=== PATIENT | male | born 1965 ===

== ENCOUNTER 2016-07-06 17:31 | Emergency (ER) | payer OTHER ==
[~2016-07-06] VITALS: Ht 175.3 cm; Wt 103.5 kg
[2016-07-06 18:00] VITALS: Ht 175.3 cm; Wt 103.5 kg
[2016-07-06] MEDS ORDERED: HYDR-902 PO (21:56)
[2016-07-06] MEDS ORDERED: LORA-441 PO (21:57)
[2016-07-06 21:58] LABS: BASOPHIL # 0.1 10^3/ul (0.0-0.1); BASOPHILS % 0.7 % (0.0-2.0); EOSINOPHILS # 0.1 10^3/ul (0.0-0.5); EOSINOPHILS % 1.1 % (0.0-7.0); HEMATOCRIT 49.6 % (42.0-52.0); HEMOGLOBIN 17.1 g/dl (14.0-18.0); LYMPHOCYTES # 2.3 10^3/ul (0.8-2.9); LYMPHOCYTES % 23.1 % (15.0-51.0); MEAN CORPUSCULAR HEMOGLOBIN 32.1 pg (29.0-33.0); MEAN CORPUSCULAR HGB CONC 34.4 g/dl (32.0-37.0); MEAN CORPUSCULAR VOLUME 93.4 fl (82.0-101.0); MEAN PLATELET VOLUME 8.5 fl (7.4-10.4); MONOCYTE # 0.8 10^3/ul (0.3-0.9); MONOCYTES % 8.5 % (0.0-11.0); NEUTROPHIL # 6.6 10^3/ul (1.6-7.5); NEUTROPHILS % 66.6 % (39.0-77.0); PLATELET COUNT 312 10^3/UL (140-440); RED BLOOD COUNT 5.31 10^6/ul (4.70-6.10); UNCORRECTED WBC 9.9 10^3/ul (4.8-10.8); WHITE BLOOD COUNT 9.9 10^3/ul (4.8-10.8)
[2016-07-06 21:59] LABS: CONDITION 1
[2016-07-06] MEDS ORDERED: MECLIZINE 12.5 MG TAB PO ONE (22:00)
[2016-07-06 22:04] LABS: CHLORIDE 104 mmol/L (97-110); POTASSIUM 4.1 mmol/L (3.5-5.1); SODIUM 141 mmol/L (135-144)
[2016-07-06 22:05] LABS: INR 0.95; PROTIME 12.7 Sec (12.2-14.2)
[2016-07-06 22:06] LABS: CREATININE 1.06 mg/dl (0.61-1.24); PARTIAL THROMBOPLASTIN TIME 24.2 Sec (25.0-35.0)
[2016-07-06 22:07] LABS: ANION GAP 20 (8-16); BLOOD UREA NITROGEN 15 mg/dl (7-20); CALCIUM 10.1 mg/dl (8.4-10.2); CARBON DIOXIDE 21 mmol/L (21-31); GLUCOSE 106 mg/dl (70-220)
[2016-07-06 22:19] LABS: TROPONIN-I < 0.012 ng/ml (0.00-0.12)
--- NOTE | 2016-07-06 22:40 | ERD ---
ER Documentation Chief Complaint Date/Time DATE: 07/06/16 TIME: 22:39 Chief Complaint DIZZINESS,LOWER BACK PAIN X 1 WEEK HPI This is a 50-year-old male who presents to the emergency room for evaluation of dizziness, and anxiety. The patient does state that he describes his dizziness as a lightheaded sensation. The patient states he has a history of anxiety, and this feels similar to previous anxiety, and the patient is denying any chest pain or palpitations. The patient came to the ER today for evaluation. ROS All systems reviewed and are negative except as per history of present illness. Medications Home Meds Reported Medications Lorazepam* (Ativan*) Unknown Strength Tablet, MG PO BID Y for ANXIETY, #30 TAB 07/06/16 Hydrocodone/Acetaminophen ([place] 10-325 Tablet) 1 Each Tablet, 1 EACH PO QHS, TAB 07/06/16 Allergies Allergies: Coded Allergies: No Known Allergy (Unverified , 07/06/16) PMhx/Soc Medical and Surgical Hx: pt denies Surgical Hx Anesthesia Reaction: No Hx Neurological Disorder: No Hx Respiratory Disorders: No Hx Substance Use: No Hx Tobacco Use: No Smoking Status: Never smoker Physical Exam Vitals Vital Signs Date Time Temp Pulse Resp B/P Pulse Ox O2 Delivery O2 Flow Rate FiO2 07/06/16 21:40 Nasal Cannula 2 07/06/16 21:28 97.9 76 11 139/108 97 Room Air 07/06/16 18:00 98.7 78 18 156/94 98 Physical Exam INITIAL VITAL SIGNS: Reviewed by me GENERAL: The patient is well developed and appropriate for usual state of health in no apparent distress HEENT: Pupils equal, round, and reactive to light. EOMI. There is no scleral icterus. NECK: C-spine is soft and supple, there is no meningismus. There is no cervical lymphadenopathy. LUNGS: Clear to auscultation bilaterally. There are no rales, wheezes or rhonchi. HEART: Regular rate and rhythm, no murmurs, clicks, rubs or gallops. ABDOMEN: Soft, non-tender, non-distended. There are bowel sounds in all four quadrants. No rebound or guarding. EXTREMITIES: There is no peripheral cyanosis or edema. No focal swelling or erythema. NEUROLOGICAL: The patient moves all four extremities with 5/5 strength. Cranial nerves II - XII are intact. Normal gait. Alert and oriented SKIN: There is no apparent rash or petechiae. HEME/LYMPHATIC: There is no evidence of excessive bruising or lymphedema. PSYCHIATRIC: The patient appears mildly anxious Result Diagram: 07/06/16213907/06/162139 Results 24 hrs Laboratory Tests Test 07/06/16 21:40 Activated Partial Thromboplast Time 24.2Sec Anion Gap 20 Basophils # 0.110^3/ul Basophils % 0.7% Blood Urea Nitrogen 15mg/dl Calcium Level 10.1mg/dl Carbon Dioxide Level 21mmol/L Chloride Level 104mmol/L Creatinine 1.06mg/dl Eosinophils # 0.110^3/ul Eosinophils % 1.1% Glucose Level 106mg/dl Hematocrit 49.6% Hemoglobin 17.1g/dl INR International Normalized Ratio 0.95 Lymphocytes # 2.310^3/ul Lymphocytes % 23.1% Mean Corpuscular Hemoglobin 32.1pg Mean Corpuscular Hemoglobin Concent 34.4g/dl Mean Corpuscular Volume 93.4fl Mean Platelet Volume 8.5fl Monocytes # 0.810^3/ul Monocytes % 8.5% Neutrophils # 6.610^3/ul Neutrophils % 66.6% Nucleated Red Blood Cells # 0.010^3/ul Nucleated Red Blood Cells % 0.0/100WBC Platelet Count 37647^3/UL Potassium Level 4.1mmol/L Prothrombin Time 12.7Sec Prothrombin Time Ratio 1.0 Red Blood Count 5.3110^6/ul Red Cell Distribution Width 13.0% Sodium Level 141mmol/L Troponin I < 0.012ng/ml White Blood Count 9.910^3/ul Current Medications Medications (Trade) Dose Ordered Sig/Shari Route PRN Reason Start Time Stop Time Status Last Admin Dose Admin Meclizine HCl (Antivert) 25 mg ONCE ONCE PO 07/06/16 22:00 07/06/16 22:01 DC 07/06/16 21:44 Hydroxyzine Pamoate (Vistaril) 25 mg ONCE ONCE PO 07/06/16 23:00 07/06/16 23:01 Procedures/MDM EKG: Rate/Rhythm: [Normal Sinus Rhythm] QRS, ST, T-waves: [No changes consistent w/ acute ischemia] Impression: [No evidence of ischemia or arrhythmia] Chest X-ray 1V Interpreted by me: Soft Tissue: No acute abnormalities Bones: No acute abnormalities Mediastinum/Cardiac Silhouette/Lungs: [No acute abnormalities] This 50-year-old male presents to the ER for evaluation of dizziness, and anxiety. The patient was anxious on my examination. I did obtain a cardiac panel including a troponin which was normal. EKG which is nonischemic. Chest x -ray which is normal. The patient was given meclizine and Vistaril here in the emergency room for dizziness and anxiety. A pulmonary evaluation the patient does state he is feeling better at this time. He will be discharged home with a prescription for Vistaril to take over the course of the next 3 days until he can be seen by his primary care physician Departure Diagnosis: Primary Impression: Dizziness Additional Impression: Anxiety reaction Condition: Fair DANYELL ROA DO Jul 06, 2016 22:40
[2016-07-06] MEDS ORDERED: HYDR25CA PO (22:45)
[2016-07-06] MEDS ORDERED: hydrOXYzine PAMOATE 25 MG CAP PO ONE (23:00)
[2016-07-06] MEDS ORDERED: TRAM50TA2 PO (23:07)
[2016-07-06 23:11] VITALS: BP 143/113; PULSE 80; RESP 11; TEMP 98
--- NOTE | 2016-07-06 23:15 | RADRPT ---
PROCEDURE: XR Chest. CLINICAL INDICATION: Chest pain. TECHNIQUE: AP Portable chest. COMPARISON: None available FINDINGS: Low lung volumes are present. The soft tissues and bones are normal. No focal infiltrates, masses, or effusions are noted. The m ediastinum and heart are normal. No pneumothorax is present. IMPRESSION: 1. No radiographic evidence for acute cardiopulmonary disease RPTAT: HDC .Mary Mason MD, MD Date Time Electronically viewed and signed by .Mary Mason MD, on 07/06/2016 23:14 .C/
== END 2016-07-06 23:16 | disposition home or self-care (01) ==
LOC: E/R 17:31
DX: R42 Dizziness and giddiness (principal); F41.1 Generalized anxiety disorder; R07.9 Chest pain, unspecified; M54.30 Sciatica, unspecified side
CPT/HCPCS: 36415; 71010; 80048; 84484; 85025; 85610; 85730; 93005; Z7502; Z7610

== ENCOUNTER 2016-07-18 00:07 | Emergency (ER) | payer OTHER ==
[~2016-07-18] VITALS: Ht 182.9 cm; Wt 110.9 kg
[~2016-07-18 00:07] MED LIST: HYDR-902 PO; HYDR25CA PO; LORA-441 PO; TRAM50TA2 PO
[2016-07-18 00:14] VITALS: Ht 182.9 cm; Wt 110.9 kg
[2016-07-18] MEDS ORDERED: MAGIC MOUTHWASH (01:15)
[2016-07-18] MEDS ORDERED: FLUT9.9S NASAL (01:46)
[2016-07-18] MEDS ORDERED: GUAI120011 PO (01:46)
[2016-07-18] MEDS ORDERED: AZIT250T94 PO (01:46)
--- NOTE | 2016-07-18 02:00 | ERD ---
ER Documentation Chief Complaint Date/Time DATE: 07/18/16 TIME: 01:51 Chief Complaint sore spot on tongue HPI This is a 50-year-old male who presents to the emergency department today with complaints of pain and a sore on the side of his tongue for 6 weeks, cough and runny nose and congestion for the past several days. States he is unsure if he has had a fever. Denies any nausea or vomiting ROS All systems reviewed and are negative except as per history of present illness. Medications Home Meds Active Scripts Guaifenesin (Mucinex) 1,200 Mg Tab.er.12h, 1200 MG PO BID for 5 Days, TAB Prov:NICHELLE FLORIAN PA-C 07/18/16 Fluticasone Propionate (Flonase Allergy Relief) 9.9 Ml [place].susp, 1 SPRAY NASAL BID, #1 BOTTLE TO EACH NOSTRIL Prov:NICHELLE FLORIAN PA-C 07/18/16 Azithromycin* (Zithromax*) 250 Mg Tablet, 250 MG PO .ZPACK DIRECTED, #6 TAB TAKE 500 MG (2 TABS) THE FIRST DAY THEN 250 MG (1 TAB) DAYS 2-5 Prov:NICHELLE FLORIAN PA-C 07/18/16 [Magic Mouthwash] No Conflict Check Rx: 1 Part viscous lidocaine 2% 1 Part Maalox (do not substitute Kaopectate) 1 Part diphenhydramine 12.5 mg per 5 ml elixir Quantity: 120 ml Sig: Swish, gargle, and spit one to two teaspoonfuls every six hours as needed. May be swallowed if esophageal involvement. Shake well before using. Prov:STEFANIE LINDA NP 07/18/16 Tramadol HCl (Tramadol HCl) 50 Mg Tablet, 50 MG PO Q6, #10 TAB Prov:DANYELL ROA DO 07/06/16 Hydroxyzine Pamoate* (Vistaril*) 25 Mg Capsule, 25 MG PO Q8 for 3 Days, #10 CAP Prov:DANYELL ROA DO 07/06/16 Reported Medications Lorazepam* (Ativan*) Unknown Strength Tablet, MG PO BID Y for ANXIETY, #30 TAB 07/06/16 Hydrocodone/Acetaminophen ([place] 10-325 Tablet) 1 Each Tablet, 1 EACH PO QHS, TAB 07/06/16 Allergies Allergies: Coded Allergies: No Known Allergy (Unverified , 07/06/16) PMhx/Soc Medical and Surgical Hx: pt denies Surgical Hx History of Surgery: No Anesthesia Reaction: No Hx Neurological Disorder: No Hx Respiratory Disorders: No Hx Cardiac Disorders: Yes (HIGH BLOOD PRESSURE) Hx Psychiatric Problems: Yes (ANXIETY) Hx Miscellaneous Medical Probl: Yes (PANIC ATTACKS, SCIATICA) Hx Alcohol Use: Yes Hx Substance Use: No Hx Tobacco Use: No Smoking Status: Former smoker Physical Exam Vitals Vital Signs Date Time Temp Pulse Resp B/P Pulse Ox O2 Delivery O2 Flow Rate FiO2 07/18/16 00:14 98.7 90 18 132/74 96 Physical Exam Const: No acute distress Head: Atraumatic Eyes: Normal Conjunctiva ENT: Ears TMs normal. Nose no drainage. Throat no erythema no exudate. Very small evidence of sore on left side of tongue Neck: Full range of motion..~ No meningismus. Resp: Coarse breath sounds bilaterally in all lung das. No wheezing Cardio: Regular rate and rhythm, no murmurs Abd: Soft, non tender, non distended. Normal bowel sounds Skin: No petechiae or rashes Neur: Awake and alert Psych: Normal Mood and Affect Procedures/MDM This a 50-year-old male who presented to the emergency department today with multiple complaints. Patient is homeless and does not have good follow-up with the exception of his pain management doctor. I do not feel the patient requires a chest x-ray at this time however I will treat the patient with azithromycin for possible bronchitis versus pneumonia given his coarse breath sounds on physical exam. Patient's oxygen saturation is 96% he has not tachycardic. I do not feel the patient requires a breathing treatment. Low suspicion for PE, abscess, pleural effusion, pneumothorax. I have low suspicion for strep pharyngitis, peritonsillar abscess, retropharyngeal abscess, otitis media, sinusitis, abscess, meningitis, sepsis, or other acute infectious bacterial process. Patient has a small sore in the left side of his tongue. This does not appear to be a cancerous lesion at this time however explained to him that he should get follow-up for it. May also be an irritated taste bud versus a canker sore. We will give the patient a prescription for Magic mouthwash should he need it. At this time the patient is stable for discharge and outpatient management. They should follow up with their PCP in the next 1-2. They may return to the emergency department sooner if symptoms persist or worsen. Patient understood and agreed with the plan. Departure Diagnosis: Primary Impression: Multiple complaints Condition: Fair Patient Instructions: What Is Bronchitis?, When Your Child Has Mouth Sores Referrals: [facility] YOU HAVE RECEIVED A MEDICAL SCREENING EXAM AND THE RESULTS INDICATE THAT YOU DO NOT HAVE A CONDITION THAT REQUIRES URGENT TREATMENT IN THE EMERGENCY DEPARTMENT. FURTHER EVALUATION AND TREATMENT OF YOUR CONDITION CAN WAIT UNTIL YOU ARE SEEN IN YOUR DOCTORS OFFICE WITHIN THE NEXT 1-2 DAYS. IT IS YOUR RESPONSIBILITY TO MAKE AN APPOINTMENT FOR FOLOW-UP CARE. IF YOU HAVE A PRIMARY DOCTOR --you should call your primary doctor and schedule an appointment IF YOU DO NOT HAVE A PRIMARY DOCTOR YOU CAN CALL OUR PHYSICIAN REFERRAL HOTLINE AT IF YOU CAN NOT AFFORD TO SEE A PHYSICIAN YOU CAN CHOSE FROM THE FOLLOWING [facility] [address] [facility] [facility] [address] [facility] [facility] [address] [facility] [facility] [address] [facility]. [facility] [address] [facility] [facility]. [address] Additional Instructions: Call your primary care doctor TOMORROW for an appointment during the next 1-2 days.See the doctor sooner or return here if your condition worsens before your appointment time. Take antibiotics as prescribed Use Magic mouthwash for mouth pain Take Mucinex for cough Use Flonase for nasal congestion NICHELLE FLORIAN PA-C Jul 18, 2016 02:00
[2016-07-18 02:03] VITALS: BP 122/77; PULSE 80; RESP 18; TEMP 98.6
== END 2016-07-18 02:03 | disposition home or self-care (01) ==
LOC: FTE 00:07
DX: K14.8 Other diseases of tongue (principal); R05 Cough; R09.81 Nasal congestion; Z87.891 Personal history of nicotine dependence
CPT/HCPCS: 99283

== ENCOUNTER 2016-10-17 19:23 | Emergency (ER) | payer SELFPAY ==
[~2016-10-17] VITALS: Ht 175.3 cm; Wt 107.5 kg
[~2016-10-17 19:23] MED LIST changes: +AZIT250T94 PO; +FLUT9.9S NASAL; +GUAI120011 PO; +MAGIC MOUTHWASH
[2016-10-17 19:28] VITALS: Ht 175.3 cm; Wt 107.5 kg
== END 2016-10-18 00:25 | disposition left against medical advice (07) ==
LOC: E/R 19:23
DX: Z53.21 Procedure and treatment not carried out due to patient leaving prior to being seen by health care provider (principal)

== ENCOUNTER 2017-03-02 13:02 | Emergency (ER) | payer OTHER ==
[~2017-03-02] VITALS: Ht 182.9 cm; Wt 108.5 kg
[2017-03-02 13:04] VITALS: Ht 182.9 cm; Wt 108.5 kg
[2017-03-02] MEDS ORDERED: OLANZAPINE (ODT) 5 MG TAB PO STA (13:17)
--- NOTE | 2017-03-02 13:45 | PSY ---
Date/Time of Note Date/Time of Note DATE: 03/02/17 TIME: 13:40 Psychiatric Subjective Eval Consent Pt consented to telemedicine: Yes Subjective Evaluation Patient location: emergency Chief Complaint: SI x 3 months has plan History of present illness " I am home;less, I lost job, I do cocaine and lastly Amhetamine, I want to kill myslf, I will cut my wrists" Also reports seeing shadows out of corners of his eyes. 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 Sleeps poorly, poor appetite, low energy level. Past psychiatric history he has seen [facility] before no inpatient Tx. Hospitalization: no Medical history Problems Medical Problems: (1) Anxiety reaction Status: Acute (2) Dizziness Status: Acute (3) Multiple complaints Status: Acute (4) Patient left without being seen Status: Acute Allergies: Coded Allergies: No Known Allergy (Unverified , 07/06/16) Substance Abuse Substance abuse history: Yes Social History Marital status: single Psychiatric Objective Eval Review of Systems: Review of Systems: Not Applicable Physical Examination: Physical Examination: Not Applicable Mental Status Examination: Appearance: Disheveled Eye Contact: Fair Psychomotor Activity: Slow Behavior: Cooperative Speech: Clear AFFECT: Depressed Mood: Depressed Though Process: Linear Thought Content: Hallucinations Suicidal: Yes Homicidal: No On 72 hour hold: Yes Orientation: x4 Cognition: Alert Insight: Impared Judgement: Impared Assessment and Plan Assessment/Diagnosis [place] I: major depressive disorder recurrent with psychosis polysubstance abuse [place] II: deferred [place] III: HTN [place] IV: Moderate [place] V: GAF 20 Recommendation/Plan Medication Management zoloft 50mg a day Trazodone 50mg HS PRN to sleep. Hydroxyzine 25mg TID PRN for severe anxiety Follow-up/Disposition 5150 involuntary admission ot psychiatry inpatient tx for DTS. 5150 Recommendation: Place Hold DEVIN TREVIÑO MD Mar 02, 2017 13:45
[2017-03-02 13:52] LABS: ADD UMIC YES; UR ASCORBIC ACID NEGATIVE (NEGATIVE); UR BILIRUBIN (Dip) NEGATIVE (NEGATIVE); UR BLOOD (Dip) 2+ mg/dL (NEGATIVE); UR CLARITY CLEAR (CLEAR); UR COLOR STRAW (YELLOW); UR GLUCOSE (Dip) NEGATIVE (NEGATIVE); UR KETONES (Dip) NEGATIVE (NEGATIVE); UR LEUKOCYTE ESTERASE (Dip) NEGATIVE Leu/ul (NEGATIVE); UR NITRITE (Dip) NEGATIVE (NEGATIVE); UR RBC 0 /HPF (0-5); UR SPECIFIC GRAVITY (Dip) 1.002 (1.003-1.030); UR TOTAL PROTEIN (Dip) NEGATIVE (NEGATIVE); UR UROBILINOGEN (Dip) NEGATIVE (NEGATIVE)
[2017-03-02 14:04] LABS: BASOPHIL # 0.1 10^3/ul (0.0-0.1); BASOPHILS % 0.8 % (0.0-2.0); EOSINOPHILS # 0.2 10^3/ul (0.0-0.5); EOSINOPHILS % 2.5 % (0.0-7.0); HEMATOCRIT 43.8 % (42.0-52.0); HEMOGLOBIN 15.6 g/dl (14.0-18.0); LYMPHOCYTES # 1.6 10^3/ul (0.8-2.9); LYMPHOCYTES % 25.5 % (15.0-51.0); MEAN CORPUSCULAR HEMOGLOBIN 31.9 pg (29.0-33.0); MEAN CORPUSCULAR HGB CONC 35.6 g/dl (32.0-37.0); MEAN CORPUSCULAR VOLUME 89.6 fl (82.0-101.0); MEAN PLATELET VOLUME 9.9 fl (7.4-10.4); MONOCYTE # 0.6 10^3/ul (0.3-0.9); MONOCYTES % 9.2 % (0.0-11.0); NEUTROPHIL # 3.8 10^3/ul (1.6-7.5); NEUTROPHILS % 61.7 % (39.0-77.0); PLATELET COUNT 302 10^3/UL (140-415); RED BLOOD COUNT 4.89 10^6/ul (4.70-6.10); WHITE BLOOD COUNT 6.1 10^3/ul (4.8-10.8)
[2017-03-02 14:16] LABS: BARBITURATES Negative (NEGATIVE); BENZODIAZEPINES Negative (NEGATIVE); CANNABINOIDS Negative (NEGATIVE); COCAINE Negative (NEGATIVE); OPIATES Negative (NEGATIVE)
[2017-03-02 14:24] LABS: ALANINE AMINOTRANSFERASE 60 IU/L (13-69); ALBUMIN 4.4 g/dl (3.3-4.9); ALBUMIN/GLOBULIN RATIO 1.29; ALKALINE PHOSPHATASE 116 IU/L (42-121); ANION GAP 14 (8-16); ASPARTATE AMINO TRANSFERASE 56 IU/L (15-46); BILIRUBIN,INDIRECT 1.3 mg/dl (0-1.1); BILIRUBIN,TOTAL 1.3 mg/dl (0.2-1.3); BLOOD UREA NITROGEN 7 mg/dl (7-20); CALCIUM 9.5 mg/dl (8.4-10.2); CARBON DIOXIDE 22 mmol/L (21-31); CHLORIDE 103 mmol/L (97-110); CREATININE 0.84 mg/dl (0.61-1.24); GLUCOSE 132 mg/dl (70-220); SODIUM 135 mmol/L (135-144); TOTAL PROTEIN 7.8 g/dl (6.1-8.1)
[2017-03-02 14:25] LABS: ACETAMINOPHEN < 10.0 ug/ml (10.0-30.0); ETHANOL < 10.0 mg/dl; SALICYLATE < 1.0 mg/dl (5.0-30.0)
--- NOTE | 2017-03-02 15:50 | ERA ---
ER Documentation Chief Complaint Date/Time DATE: 03/02/17 TIME: 15:49 Chief Complaint SI x 3 months has plan HPI Patient is a 51-year-old male with depression who presents with suicidal thoughts. He said that he is having bad panic attacks as well. He says that he is having suicidal thoughts and has a plan to cut his wrist. It started 1 month ago and has been off and on. He is not currently taking psychiatric medicines. He is currently homeless. Upon review of old medical records this is the patient's fourth visit to the ER since June 2016. Review of the emergency department information exchange system shows visits to 5 separate emergency departments. ROS All systems reviewed and are negative except as per history of present illness. Medications Home Meds Discontinued Reported Medications Lorazepam* (Ativan*) Unknown Strength Tablet, MG PO BID Y for ANXIETY, #30 TAB 07/06/16 Hydrocodone/Acetaminophen ([place] 10-325 Tablet) 1 Each Tablet, 1 EACH PO QHS, TAB 07/06/16 Discontinued Scripts Guaifenesin (Mucinex) 1,200 Mg Tab.er.12h, 1200 MG PO BID for 5 Days, TAB Prov:NICHELLE FLORIAN PA-C 07/18/16 Fluticasone Propionate (Flonase Allergy Relief) 9.9 Ml [place].susp, 1 SPRAY NASAL BID, #1 BOTTLE TO EACH NOSTRIL Prov:NICHELLE FLORIAN PA-C 07/18/16 Azithromycin* (Zithromax*) 250 Mg Tablet, 250 MG PO .ZPACK DIRECTED, #6 TAB TAKE 500 MG (2 TABS) THE FIRST DAY THEN 250 MG (1 TAB) DAYS 2-5 Prov:NICHELLE FLORIAN PA-C 07/18/16 [Magic Mouthwash] No Conflict Check Rx: 1 Part viscous lidocaine 2% 1 Part Maalox (do not substitute Kaopectate) 1 Part diphenhydramine 12.5 mg per 5 ml elixir Quantity: 120 ml Sig: Swish, gargle, and spit one to two teaspoonfuls every six hours as needed. May be swallowed if esophageal involvement. Shake well before using. Prov:STEFANIE LINDA NP 07/18/16 Tramadol HCl (Tramadol HCl) 50 Mg Tablet, 50 MG PO Q6, #10 TAB Prov:DANYELL ROA DO 07/06/16 Hydroxyzine Pamoate* (Vistaril*) 25 Mg Capsule, 25 MG PO Q8 for 3 Days, #10 CAP Prov:DANYELL ROA DO 07/06/16 Allergies Allergies: Coded Allergies: No Known Allergy (Unverified , 03/02/17) PMhx/Soc History of Surgery: No Anesthesia Reaction: No Hx Neurological Disorder: No Hx Respiratory Disorders: No Hx Cardiac Disorders: Yes (HIGH BLOOD PRESSURE) Hx Psychiatric Problems: Yes (ANXIETY) Hx Miscellaneous Medical Probl: Yes (PANIC ATTACKS, SCIATICA) Hx Alcohol Use: No Hx Substance Use: Yes (meth last used 2 days ago) Hx Tobacco Use: No Smoking Status: Former smoker FmHx Family History: No diabetes Physical Exam Vitals Vital Signs Date Time Temp Pulse Resp B/P Pulse Ox O2 Delivery O2 Flow Rate FiO2 03/02/17 13:04 98.7 90 18 140/83 98 Physical Exam Const: Depressed affect Head: Atraumatic Eyes: Normal Conjunctiva ENT: Normal External Ears, Nose and Mouth. Neck: Full range of motion..~ No meningismus. Resp: Clear to auscultation bilaterally Cardio: Regular rate and rhythm, no murmurs Abd: Soft, non tender, non distended. Normal bowel sounds Skin: No petechiae or rashes Back: No midline or flank tenderness Ext: No cyanosis, or edema Neur: Awake and alert Psych: Depressed affect, tearful, positive for suicidal ideation with plan to cut wrists Result Diagram: 03/02/17 1337 03/02/17 1337 Results 24 hrs Laboratory Tests Test 03/02/17 13:30 03/02/17 13:37 Urine Color STRAW Urine Clarity CLEAR Urine pH 6.0 Urine Specific [place] 1.002 Urine Ketones NEGATIVEmg/dL Urine Nitrite NEGATIVEmg/dL Urine Bilirubin NEGATIVEmg/dL Urine Urobilinogen NEGATIVEmg/dL Urine Leukocyte Esterase NEGATIVELeu/ul Urine Microscopic RBC 0/HPF Urine Microscopic WBC 0/HPF Urine Hemoglobin 2+mg/dL Urine Glucose NEGATIVEmg/dL Urine Total Protein NEGATIVEmg/dl Urine Opiates Screen Negative Urine Barbiturates Negative Urine Amphetamines Screen Positive Urine Benzodiazepines Screen Negative Urine Cocaine Screen Negative Urine Cannabinoids Negative White Blood Count 6.110^3/ul Red Blood Count 4.8910^6/ul Hemoglobin 15.6g/dl Hematocrit 43.8% Mean Corpuscular Volume 89.6fl Mean Corpuscular Hemoglobin 31.9pg Mean Corpuscular Hemoglobin Concent 35.6g/dl Red Cell Distribution Width 12.0% Platelet Count 33587^3/UL Mean Platelet Volume 9.9fl Neutrophils % 61.7% Lymphocytes % 25.5% Monocytes % 9.2% Eosinophils % 2.5% Basophils % 0.8% Nucleated Red Blood Cells % 0.0/100WBC Neutrophils # 3.810^3/ul Lymphocytes # 1.610^3/ul Monocytes # 0.610^3/ul Eosinophils # 0.210^3/ul Basophils # 0.110^3/ul Nucleated Red Blood Cells # 0.010^3/ul Sodium Level 135mmol/L Potassium Level 4.0mmol/L Chloride Level 103mmol/L Carbon Dioxide Level 22mmol/L Anion Gap 14 Blood Urea Nitrogen 7mg/dl Creatinine 0.84mg/dl Glucose Level 132mg/dl Calcium Level 9.5mg/dl Total Bilirubin 1.3mg/dl Direct Bilirubin 0.00mg/dl Indirect Bilirubin 1.3mg/dl Aspartate Amino Transf (AST/SGOT) 56IU/L Alanine Aminotransferase (ALT/SGPT) 60IU/L Alkaline Phosphatase 116IU/L Total Protein 7.8g/dl Albumin 4.4g/dl Globulin 3.40g/dl Albumin/Globulin Ratio 1.29 Salicylates Level < 1.0mg/dl Acetaminophen Level < 10.0ug/ml Ethyl Alcohol Level < 10.0mg/dl Current Medications Medications (Trade) Dose Ordered Sig/Shari Route PRN Reason Start Time Stop Time Status Last Admin Dose Admin Olanzapine (Zyprexa Zydis) 5 mg ONCE STAT PO 03/02/17 13:17 03/02/17 13:19 DC 03/02/17 14:01 Procedures/MDM Smoking Cessation Therapy: Pt. was lectured for greater than 3 minutes on the health risks of continued smoking and the benefits of cessation. Patient is a 51-year-old male with depression who presents with suicidal ideation with plan. I am concerned for possible suicide attempt and therefore the patient had a telemetry psychiatric evaluation. They recommended psychiatric care. The patient was given Zyprexa 5 mg. The patient had laboratory studies done and is now medically clear for psychiatric transfer. The patient has been accepted at [facility] for psychiatric care. The patient will be transferred by ambulance. Departure Diagnosis: Primary Impression: Suicidal ideation Condition: MOLLY Harrison MD Mar 02, 2017 15:50
[2017-03-02 19:39] VITALS: BP 104/55; PULSE 78; RESP 15; TEMP 98
== END 2017-03-02 19:19 ==
LOC: E/R 13:02
DX: R45.851 Suicidal ideations (principal); Z87.891 Personal history of nicotine dependence
CPT/HCPCS: 36415; 80053; 80306; 80307; 81001; 85025; Z7502; Z7610; 99285